=== PATIENT | male | born 1980 | race Caucasian/White ===

== ENCOUNTER → 2019-01-20 | Outpatient (CLI) | payer OTHER ==
--- NOTE | 2019-01-20 19:28 | REP ---
MRI RIGHT KNEE WITH AND WITHOUT CONTRAST: TECHNIQUE: Axial proton density fat saturation, sagittal proton density T2 STIR, water excitation, coronal proton density, proton density fat saturation. Axial T1 fat sat, post IV gadolinium, axial and coronal T1 fat sat, with the intravenous administration of 18 mL ProHance. The menisci appear intact with no evidence of a tear. The cruciate and collateral ligament are intact. The extensor mechanism is intact. There is mild chondromalacia of the patella with mild subchondral marrow edema in the patella. These findings are most significant involving the lateral patellar facet. Otherwise there is mild chondromalacia in the medial and lateral joint compartments, with a more moderate degree of chondromalacia of the posterior aspect of the lateral femoral condyle with mild associated subchondral marrow edema. No other abnormal bone marrow signal is seen. There is a small joint effusion. There is no popliteal cyst. Medial and lateral patellar retinacula are intact. However superficial to the medial patellar facet and medial patellar retinaculum there is a thin area of fluid with mild surrounding enhancement. The thickness of the fluid is maximally 3 mm, having a craniocaudal dimension of about 4.8 cm. The findings suggest medial patellar bursitis. There is a suprapatellar plica. IMPRESSION: No meniscal tear. Cruciate and collateral ligaments are intact. Retinacula are intact. Mild chondromalacia of the patella with subchondral marrow edema, predominately involving the lateral patellar facet. Small joint effusion. Suprapatellar plica. Fluid and soft tissue enhancement just superficial to the medial patellar facet and medial patellar retinaculum suggests bursitis at that location. There is moderate chondromalacia of the posterior aspect of the lateral femoral condyle with mild subchondral marrow edema. Electronically Signed by Jimmy Abdul MD 01/25/2019 09:19 A
== END ==
LOC: M PLARAD 10:26
PROVIDERS: ATTEND General Practice
DX: M25.561 Pain in right knee (principal); M22.41 Chondromalacia patellae, right knee; M25.461 Effusion, right knee